=== PATIENT | female | born 1960 ===

== ENCOUNTER 2022-03-15 20:52 | Inpatient (IN) ==
[2022-03-15] MEDS ORDERED: Iopamidol - 370 500 ML MLS IVP ONE (22:02)
[2022-03-15] MEDS ORDERED: 0.9 % Sodium Chloride 1,000 ML IV ONE (22:04)
[2022-03-15 22:17] LABS: Basophils # 0.1 K/mcL (0.0-0.2); Basophils % 1.1 %; Eosinophils # 0.1 K/mcL (0.0-0.6); Eosinophils % 1.3 %; Hematocrit 35.6 % (35.3-44.9); Hemoglobin 11.2 g/dL (11.5-15.4); Immature Granulocytes % 0.4 % (0-4); Lymphocytes # 0.9 K/mcL (0.6-4.6); Lymphocytes % 20.2 %; Mean Corpuscular HGB Conc 31.5 g/dL (31.6-35.5); Mean Corpuscular Hemoglobin 29.1 pg (28.0-33.3); Mean Corpuscular Volume 92.5 fL (83.0-100.0); Mean Platelet Volume 9.6 fL (9.4-12.4); Monocytes # 0.4 K/mcL (0.0-1.3); Monocytes % 8.3 %; Neutrophils # 3.1 K/mcL (1.6-8.9); Platelet Count 275 K/mcL (140-400); Red Blood Count 3.85 M/mcL (3.82-4.97); Red Cell Distribution Width 14.1 % (11.5-14.5); Segmented Neutrophils % 68.7 %; White Blood Count 4.6 K/mcL (4.3-11.1)
[2022-03-15 22:32] LABS: Prothrombin Time 10.8 Seconds (9.4-12.1)
[2022-03-15 22:34] LABS: Activated Partial Thrombo Time 34.3 Seconds (26.0-36.0)
[2022-03-15 22:53] LABS: Alanine Aminotransferase 14 Units/L (7-52); Albumin 3.9 g/dL (3.5-5.7); Alkaline Phosphatase 99 Units/L (34-104); Aspartate Amino Transferase 16 Units/L (13-39); BUN/Creatinine Ratio 16 (6-26); Bilirubin,Indirect 0.4 mg/dL (0.0-1.0); Bilirubin,Total 0.4 mg/dL (0.3-1.0); Blood Urea Nitrogen 49 mg/dL (8-23); Calcium 9.6 mg/dL (8.6-10.3); Carbon Dioxide 21 mEq/L (23-29); Chloride 106 mEq/L (98-107); Creatine Kinase 41 Units/L (30-223); Ethanol < 10 mg/dL (Less than 10); Globulin 4.1 g/dL (2.4-3.5); Glucose 99 mg/dL (70-105); Osmolality,Calculated 293 (280-300); Potassium 5.8 mEq/L (3.5-5.1); Sodium 135 mEq/L (136-145); Thyroid Stimulating Hormone 3.059 mcIU/mL (0.340-5.600); Troponin I < 0.03 ng/mL (< 0.04); eGFR For African Americans 19 (> 60); eGFR For Non-African Americans 16 (> 60)
[2022-03-16 00:43] LABS: Bacteria,Urine Few per hpf (None-Few); Bilirubin,Urine Negative (Negative); Blood,Urine Negative (Negative); Clarity,Urine Clear (Clear); Color,Urine Light-Yellow (Yellow); Glucose,Urine (UA) Normal (Normal); Ketones,Urine Negative (Negative); Leukocyte Esterase,Urine Large (Negative); Mucus,Urine Few per lpf (None-Few); Nitrite,Urine Negative (Negative); PH,Urine 7.5 pH Units (5.0-8.0); Protein,Urine 50 mg/dL (Neg-Trace); Specific Gravity,Urine 1.017 (1.010-1.025); Squamous Epithelial Cell,Urine Few per hpf (None-Few); Urobilinogen,Urine Normal (Normal)
[2022-03-16 00:50] LABS: Amphetamine Screen,Urine Negative ng/mL (Cutoff=1000); Barbiturate Screen,Urine Negative ng/mL (Cutoff=200); Benzodiazepines Screen,Urine Negative ng/mL (Cutoff=200); Cannabinoid Screen,Urine Negative ng/mL (Cutoff = 50); Cocaine Screen,Urine Negative ng/mL (Cutoff= 300); Opiate Screen,Urine Negative ng/mL (Cutoff=300); Phencyclidine Screen,Urine Negative ng/mL (Cutoff=25)
[2022-03-16] MEDS ORDERED: cefTRIAXone 1,000 MG in 0.9 % Sodium Chloride Mini Bag 100 ML IVPB ONE (01:21)
[2022-03-16] MEDS ORDERED: 0.9 % Sodium Chloride 1,000 ML IV ONE (01:48)
[2022-03-16] MEDS ORDERED: Acetaminophen 325 MG TABLET PO PRN (06:15)
[2022-03-16] MEDS ORDERED: Ondansetron 4 MG/2 ML VIAL IVP PRN (06:15)
[2022-03-16] MEDS ORDERED: Naloxone 0.4 MG/ML INJ IVP PRN (06:15)
[2022-03-16] MEDS ORDERED: 0.9 % Sodium Chloride 1,000 ML IVC SCH (06:15)
[2022-03-16 10:46] LABS: Calcium 8.8 mg/dL (8.6-10.3); Potassium 5.5 mEq/L (3.5-5.1)
[2022-03-16] MEDS ORDERED: SODIUM ZIRCONIUM CYCLOSILICATE 5 GM POWD.PACK PO ONE (11:15)
[2022-03-16] MEDS: Sodium Bicarbonate 50 MEQ in 0.45 % Sodium Chloride 1,000 ML IVC SCH (12:21)
[2022-03-16] MEDS: *HR* Heparin 5,000 UNIT/ML VIAL SQ SCH ×2 (15:29→20:38)
[2022-03-16] MEDS: Mycophenolate Sodium (DR) 180 MG TABLET.DR PO SCH (20:38)
[2022-03-16] MEDS: Melatonin 3 MG TABLET PO PRN (20:38)
[2022-03-16] MEDS: CycloSPORINE (SandIMMUNE) 100 MG CAPSULE PO SCH ×2 (20:41→22:27)
[2022-03-16] MEDS: CYCLOSPORINE MODIFIED 100 MG PO SCH (21:18)
[2022-03-17] MEDS: cefTRIAXone 1,000 MG in 0.9 % Sodium Chloride Mini Bag 100 ML IVPB SCH (01:27)
[2022-03-17 02:36] LABS: Basophils # 0.1 K/mcL (0.0-0.2); Basophils % 1.2 %; Eosinophils # 0.2 K/mcL (0.0-0.6); Eosinophils % 3.7 %; Hematocrit 29.5 % (35.3-44.9); Immature Granulocytes % 0.2 % (0-4); Lymphocytes # 1.1 K/mcL (0.6-4.6); Lymphocytes % 26.8 %; Mean Corpuscular HGB Conc 31.5 g/dL (31.6-35.5); Mean Corpuscular Hemoglobin 29.7 pg (28.0-33.3); Mean Corpuscular Volume 94.2 fL (83.0-100.0); Mean Platelet Volume 9.9 fL (9.4-12.4); Monocytes # 0.5 K/mcL (0.0-1.3); Monocytes % 12.8 %; Neutrophils # 2.3 K/mcL (1.6-8.9); Platelet Count 221 K/mcL (140-400); Red Blood Count 3.13 M/mcL (3.82-4.97); Segmented Neutrophils % 55.3 %; White Blood Count 4.1 K/mcL (4.3-11.1)
[2022-03-17 02:37] LABS: Hemoglobin 9.3 g/dL (11.5-15.4)
[2022-03-17 02:53] LABS: Albumin 3.1 g/dL (3.5-5.7); Albumin/Globulin Ratio 0.9 (1.1-2.2); Bilirubin,Total 0.4 mg/dL (0.3-1.0); Calcium 8.5 mg/dL (8.6-10.3); Globulin 3.3 g/dL (2.4-3.5); Potassium 5.3 mEq/L (3.5-5.1); Total Protein 6.4 g/dL (6.4-8.9)
[2022-03-17] MEDS: *HR* Heparin 5,000 UNIT/ML VIAL SQ SCH ×3 (04:05→21:51)
[2022-03-17] MEDS: Sodium Bicarbonate 50 MEQ in 0.45 % Sodium Chloride 1,000 ML IVC SCH ×2 (04:55→16:43)
[2022-03-17 05:42] LABS: Protein/Creatinine Ratio,Urine 0.87 mg/mg (0.00-0.20); Sodium, Urine 175.5 mEq/L
[2022-03-17] MEDS: Mycophenolate Sodium (DR) 180 MG TABLET.DR PO SCH ×3 (07:50→21:50)
[2022-03-17] MEDS: amLODIPine 5 MG TABLET PO SCH (07:51)
[2022-03-17] MEDS ORDERED: SODIUM ZIRCONIUM CYCLOSILICATE 5 GM POWD.PACK PO SCH (09:00)
[2022-03-17] MEDS ORDERED: SODIUM ZIRCONIUM CYCLOSILICATE 5 GM POWD.PACK PO ONE (09:00)
[2022-03-17] MEDS: CYCLOSPORINE MODIFIED 100 MG PO SCH ×2 (10:09→21:50)
[2022-03-17] MEDS: [UNRECOGNIZED DRUG - OTHER] PO SCH ×2 (10:09→21:50)
[2022-03-17] MEDS: Melatonin 3 MG TABLET PO PRN (21:51)
[2022-03-18] MEDS: cefTRIAXone 1,000 MG in 0.9 % Sodium Chloride Mini Bag 100 ML IVPB SCH (01:44)
[2022-03-18 03:12] LABS: Basophils # 0.1 K/mcL (0.0-0.2); Basophils % 1.3 %; Eosinophils # 0.1 K/mcL (0.0-0.6); Eosinophils % 3.5 %; Hematocrit 31.7 % (35.3-44.9); Hemoglobin 9.9 g/dL (11.5-15.4); Immature Granulocytes % 0.5 % (0-4); Lymphocytes # 1.2 K/mcL (0.6-4.6); Lymphocytes % 29.9 %; Mean Corpuscular HGB Conc 31.2 g/dL (31.6-35.5); Mean Corpuscular Hemoglobin 28.8 pg (28.0-33.3); Mean Corpuscular Volume 92.2 fL (83.0-100.0); Monocytes # 0.5 K/mcL (0.0-1.3); Monocytes % 12.4 %; Neutrophils # 2.1 K/mcL (1.6-8.9); Platelet Count 217 K/mcL (140-400); Red Blood Count 3.44 M/mcL (3.82-4.97); Red Cell Distribution Width 13.5 % (11.5-14.5); Segmented Neutrophils % 52.4 %
[2022-03-18 03:34] LABS: Albumin 3.3 g/dL (3.5-5.7); Bilirubin,Total 0.3 mg/dL (0.3-1.0); Calcium 8.9 mg/dL (8.6-10.3); Globulin 3.2 g/dL (2.4-3.5); Potassium 5.3 mEq/L (3.5-5.1); Total Protein 6.5 g/dL (6.4-8.9)
[2022-03-18] MEDS: Sodium Bicarbonate 50 MEQ in 0.45 % Sodium Chloride 1,000 ML IVC SCH ×2 (05:52→19:41)
[2022-03-18] MEDS: *HR* Heparin 5,000 UNIT/ML VIAL SQ SCH ×3 (05:53→19:48)
[2022-03-18] MEDS: Mycophenolate Sodium (DR) 180 MG TABLET.DR PO SCH ×3 (08:45→19:48)
[2022-03-18] MEDS: amLODIPine 5 MG TABLET PO SCH (08:46)
[2022-03-18] MEDS: [UNRECOGNIZED DRUG - OTHER] PO SCH ×2 (08:47→20:49)
[2022-03-18] MEDS: CYCLOSPORINE MODIFIED 100 MG PO SCH ×2 (08:47→19:47)
[2022-03-18] MEDS ORDERED: SODIUM ZIRCONIUM CYCLOSILICATE 5 GM POWD.PACK PO ONE (10:00)
[2022-03-18] MEDS: Melatonin 3 MG TABLET PO PRN (19:48)
[2022-03-19 03:33] LABS: Calcium 8.8 mg/dL (8.6-10.3); Potassium 4.8 mEq/L (3.5-5.1)
[2022-03-19] MEDS: *HR* Heparin 5,000 UNIT/ML VIAL SQ SCH (06:15)
[2022-03-19] MEDS: CYCLOSPORINE MODIFIED 100 MG PO SCH (10:36)
[2022-03-19] MEDS: Mycophenolate Sodium (DR) 180 MG TABLET.DR PO SCH (10:36)
[2022-03-19] MEDS: amLODIPine 5 MG TABLET PO SCH (10:37)
[2022-03-19] MEDS ORDERED: [UNRECOGNIZED DRUG - OTHER] PO SCH (10:45)
[2022-03-19] MEDS: [UNRECOGNIZED DRUG - OTHER] PO SCH (10:50)
[2022-03-19 11:08] VITALS: BP 150/76; PULSE 80; TEMP 97.9; O2SAT 93
[2022-03-19] MEDS: Sodium Bicarbonate 50 MEQ in 0.45 % Sodium Chloride 1,000 ML IVC SCH (11:23)
== END 2022-03-19 13:25 | disposition home or self-care (01) | DRG 682 ==
LOC: EMEROOARM 20:52 → 2ANU 20:52 → SUATTDRO 03-16 06:13 → 2ANU 03-16 06:47
PROVIDERS: ADMIT Internal Medicine; ATTEND Family Medicine